=== PATIENT | male | born 1945 | race Caucasian/White ===

== ENCOUNTER → 2018-02-27 | Outpatient (CLI) | payer OTHER, BC ==
[~2018-02-27] VITALS: Ht 180.3 cm; Wt 121.1 kg
[~2018-02-27] MED LIST: ALDACTONE25 MG PO; ATORVASTATIN CA40 MG PO; BACTROBAN22 GM TP; BAYER CHEWABLE81 MG PO; CARVEDILOL12.5 MG PO; CLONIDINE0.1 PO; COZAAR 25 MG TA25 M1 PO; DIOVAN320 MG PO; FUROSEMIDE 20 M20 MG PO; GLUCOPHAGE1000 MG PO; JARDIANCE25 MG PO; LANTUS100 UNIT/M SUBQ; METFORMIN HCL500 MG PO; NEXIUM40 MG PO; NORVASC10 MG PO; PAROXETINE HCL30 MG PO; TOPROL XL25 MG PO; VIBRAMYCIN 100100 M2 PO; VITAMIN D1000 UNI1 PO; XARELTO15 MG PO; XARELTO20 MG PO; ZANTAC 150MG T150 MG PO
--- NOTE | ~2018-02-27 | HPC ---
[facility] [address] [place] [address] PAIN MANAGEMENT CONSULTATION Name: MILTON BHATIA JR Room #: REG [facility].#: [id number] Admission: 02/27/18 Attend Phys: Jv Marlow MD Discharge: Date of : 43 Report #: [id number] THIS REPORT FOR: //name// CC: Guerrero Marlow DATE OF SERVICE: 02/27/2018 CHIEF COMPLAINT: Axial low back pain. I am seeing the patient today at the request of Dr. English. He is a pleasant 72-year-old gentleman who complains of pain across the lumbosacral segment without radiation. Pain is extreme in his low back particularly after he first gets up in the morning. It is a little better as the day goes on. He reports that he cannot stand very long or walk very far without having increasing back pain and he has dyspnea on exertion. He has known spinal stenosis and his MRI was reviewed today. Degenerative disk disease and spondylosis round out his x-ray findings, fairly common findings for a 72-year-old gentleman who is obese and deconditioned. He describes his pain as an aching periodic sensation, every day it is a 5, but it can be 8/10 in the morning. The patient suffers from non-Hodgkin's lymphoma. He has been under treatment and has one more chemotherapy treatment to go. He also has developed a dental abscess, which needs to be taken care of by next Saturday by an oral surgeon. Apparently, this is due to a foreign body left behind during a root canal 12 years ago. MEDICATIONS: Include the blood thinner, Xarelto, atorvastatin, paroxetine, aspirin, Lantus insulin, metformin, ____, ranitidine, spironolactone, losartan and metoprolol. ALLERGIES: RADIOGRAPHIC DYE CAUSED SOME FLUSHING. PAST MEDICAL HISTORY: Remarkable for carcinoma of the prostate resected in 2001 followed by radiation. Surgery was performed by Dr. Jorge Thorne. He reports that his prostate cancer is "gone." Non-Hodgkin's lymphoma, currently under treatment. Osteoarthritis, of multiple joints including hips and knees. History of irritable bowel syndrome with frequent diarrhea. This was suggested as a possible radiation side effect, but that thought had not been crossed their mind nor has it been addressed as a possibility. He has type 2 diabetes and a history of hypertension. 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 He denies use of tobacco, but enjoys two alcoholic beverages per day in a social setting. He does not exercise at all and he has dyspnea with even short exertional activities. Impacted pain scores are mostly with walking, normal work and enjoyment of life. He scores a 29 out of a possible 70. Risk assessment tool is completed and he is at low risk for addiction. He completed a review of systems and each category was questioned with the patient, is noted on the medical record and included mostly in the history of present illness. PHYSICAL EXAMINATION GENERAL: This is a pleasant, outgoing gentleman. He is morbidly obese. VITAL SIGNS: BMI of 37.3. Much of his weight carried around the midsection. He is 5 feet 11 inches tall. He weighs 267 pounds. His blood pressure is 124/69, heart rate 85, respirations 16, room air oxygen saturation 96%. Pain intensity this day is 4-5/10. GENERAL: When I asked to ambulate, he is able to move from sitting to standing position, but he walks with a somewhat back and forth a bit unstable gait. He seems to have a bit of proprioception loss. He was dyspneic with even short distance of walking no more than 10-20 feet. HEENT: Pupils are equal, round and react to light. EOMs are intact. NECK: Supple. CHEST: Clear to auscultation. CARDIAC: Rhythm was regular. I could not appreciate a murmur. ABDOMEN: Obese with a lot of adipose tissue noted around the midsection. MUSCULOSKELETAL: Significant deconditioning throughout all muscle groups in the upper and lower extremities. There is some tenderness across the lumbosacral segment. Pain with forward flexion and extension is mild. Lateral rotation and [id number] tilt did not reproduce pain. Straight leg raising is only possible to about 30 degrees before there is pain that is noted in the back and some into the hips bilaterally perhaps suggesting a mild radicular component. Sensation is intact. Deep tendon reflexes are absent throughout. IMPRESSION: 1. Low back pain with spondylosis, spinal stenosis, mild components of lumbar radiculopathy and facet arthropathy. 2. Non-Hodgkin's lymphoma, currently under treatment. 3. Dental abscess. 4. Use of anticoagulant therapy for history of DVT and pulmonary embolus. 5. Morbid obesity. [facility] [address] [place] [address] PAIN MANAGEMENT CONSULTATION Name: MILTON BHATIA JR Room #: REG SAMREEN Mckeon#: [id number] Admission: 02/27/18 Attend Phys: Jv Marlow MD Discharge: Date of : 43 Report #: [id number] 6. Insulin-dependent diabetes. 7. Hypertension. 8. History of prostate cancer in 2001. 9. Frequent diarrhea, possibly irritable bowel syndrome, consideration of radiation effect. RECOMMENDATIONS: 1. I had a long discussion today about the importance of movement. A simple walking program was the first step. I have stressed strongly that he should begin a daily walking program out of doors just a few minutes to begin with and gradually increasing. From there, we can move into additional exercises, but he is quite sedentary. I am a bit concerned by his dyspnea on exertion and I have attributed this mostly to deconditioning, but he should be cautious for chest pain and other issues due to his high risk with diabetes, obesity and history of DVT. 2. He may be a candidate for an epidural steroid injection as a first step in treatment through an injection therapy, but I would be cautious with it 3. Medication management discussion: I would avoid the use of nonsteroidal anti-inflammatory drugs or use them very cautiously with his use of Xarelto. It may be helpful for his spondylitic component. 4. Plain Tylenol can be utilized safely up to 2000 mg per day. He has tried this before. I have recommended that he continue to use that as possible. 5. Consider the use of tramadol or hydrocodone as a safer alternative. The opioid crisis referenced and discussed today. This would be considered a reasonable choice given other considerations. It may even be helpful for his loose stools rather than a hindrance as it is for most. Total time spent with the patient is roughly 40 minutes. Followup visit is planned in the future for possible epidural injection. By: [id number] Jv Marlow MD /nt
[2018-02-27 13:33] VITALS: BP 124/69
== END ==
LOC: PAIN 06:46
DX: M47.26 Other spondylosis with radiculopathy, lumbar region (principal); C85.90 Non-Hodgkin lymphoma, unspecified, unspecified site; K04.7 Periapical abscess without sinus; E66.01 Morbid (severe) obesity due to excess calories; E11.9 Type 2 diabetes mellitus without complications; I10 Essential (primary) hypertension; R19.7 Diarrhea, unspecified; Z85.46 Personal history of malignant neoplasm of prostate; Z86.718 Personal history of other venous thrombosis and embolism; Z79.01 Long term (current) use of anticoagulants; Z68.37 Body mass index [BMI] 37.0-37.9, adult

== ENCOUNTER 2018-08-27 13:23 | Emergency (ER) | payer OTHER, BC ==
[~2018-08-27] VITALS: Ht 185.4 cm; Wt 104.3 kg
[2018-08-27 14:07] LABS: HEMATOCRIT 37.6 % (42.0-52.0); HEMOGLOBIN 12.4 gm/dL (14.0-18.0); MCH 32.3 pg (26.0-34.0); MCHC 33.1 g/dL (28.0-37.0); MCV 97.5 fL (80.0-100.0); RBC 3.86 mil/uL (4.50-6.00); RDW 15.1 % (10.5-14.5); WBC 7.6 thou/uL (4.0-11.0)
[2018-08-27 14:16] LABS: APTT 27.2 Seconds (24.5-32.8); INR 1.2; PROTIME 11.9 Seconds (9.3-11.4)
[2018-08-27 14:18] LABS: CALCIUM 9.8 mg/dL (8.5-10.1); CREATININE 1.4 mg/dL (0.7-1.3); POTASSIUM 4.3 mmol/L (3.5-5.1)
[2018-08-27 14:22] LABS: ALBUMIN 3.5 g/dL (3.4-5.0); TOTAL BILIRUBIN 0.6 mg/dL (<0.1-1.0); TOTAL PROTEIN 6.8 g/dL (6.4-8.2)
[2018-08-27 14:26] LABS: ABSOLUTE NEUTROPHILS 6.6 thou/uL (1.4-8.2); PLATELET COUNT 130 thou/uL (150-400); PLATELET ESTIMATE NORMAL
[2018-08-27 14:49] LABS: URINE BLOOD 3+ (Negative); URINE CLARITY CLOUDY; URINE GLUCOSE-RANDOM* 3+ (Negative); URINE KETONES NEGATIVE (Negative); URINE PROTEIN (DIPSTICK) 2+ (Negative); URINE UROBILINOGEN 0.2 E.U./dl (0.2-1.0)
[2018-08-27 14:56] LABS: ICTOTEST (BILI CONFIRMATORY) Negative (Negative); URINE BILIRUBIN NEGATIVE (Negative); URINE COLOR BROWNISH; URINE LEUKOCYTES-REFLEX TRACE (Negative); URINE NITRITE-REFLEX POSITIVE (Negative)
[2018-08-27 15:02] LABS: SQUAMOUS None Seen /LPF (0-3); URINE WBC-REFLEX 0-5 Rare /HPF (0-5)
[2018-08-27 15:03] LABS: BACTERIA-REFLEX 1-9 Few /HPF (None Seen); CASTS None Seen /LPF (None Seen); CRYSTALS None Seen /LPF (None Seen); URINE RBC >20 Many /HPF (0-2)
[2018-08-27] MEDS ORDERED: JARDIANCE25 MG PO (17:08)
[2018-08-27] MEDS ORDERED: RITUXAN100 MG/10 IV (17:11)
[2018-08-27] MEDS ORDERED: KEFLEX500 M1 PO (17:59)
== END 2018-08-27 18:25 | disposition home or self-care (01) ==
LOC: ER 13:23
PROVIDERS: Emergency Medicine; Physician Assistant
DX: S09.90XA Unspecified injury of head, initial encounter (principal); N39.0 Urinary tract infection, site not specified; R31.9 Hematuria, unspecified; K62.5 Hemorrhage of anus and rectum; Z79.01 Long term (current) use of anticoagulants; M48.00 Spinal stenosis, site unspecified; I10 Essential (primary) hypertension; E11.40 Type 2 diabetes mellitus with diabetic neuropathy, unspecified; G62.9 Polyneuropathy, unspecified; Z91.041 Radiographic dye allergy status; Z90.79 Acquired absence of other genital organ(s); W18.39XA Other fall on same level, initial encounter; Y92.009 Unspecified place in unspecified non-institutional (private) residence as the place of occurrence of the external cause; Y93.89 Activity, other specified; Y99.8 Other external cause status

== ENCOUNTER 2019-03-07 11:54 | Inpatient (IN) | payer OTHER, BC ==
[~2019-03-07] VITALS: Ht 180.3 cm; Wt 121.3 kg
--- NOTE | ~2019-03-07 | HC ---
[facility] [address] [place] [address] CONSULTATION Name: MILTON BHATIA JR Room #: 427-P [facility] IN ..#: [id number] Admission: 03/07/19 ������������������ Attend Phys: Valdemar Morales MD Discharge: ������������������ Date of : 43 Report #: [id number] THIS REPORT FOR: //name// CC: Guerrero English MD [facility] physician/PCP Kelle Morales MD DATE OF SERVICE: 03/07/2019 CHIEF COMPLAINT AND HISTORY OF PRESENT ILLNESS: This is a 73-year-old male who is well known to me who was admitted for worsening foot infection with cellulitis and blisters that developed approximately 48 hours ago. He had lacerations of the fourth and fifth toes approximately 1 week ago and presented to my office on Saturday of last week and we cleansed the lacerations, repaired with single interrupted sutures and started him on Keflex. On Saturday, he states the wound was worsening and did call me and I recommended he go to the Emergency Room, which he ultimately did on Saturday and was admitted from there. PAST MEDICAL HISTORY: Significant for non-Hodgkin's lymphoma, lacerations of toes previously, which have required repair due to severe peripheral neuropathy, diabetes with neuropathy. Diabetes is well controlled, hypertension, GERD, history of pulmonary embolism. PAST SURGICAL HISTORY: Significant for prostatectomy in 2001. SOCIAL HISTORY: The patient is and lives at home. Denies tobacco abuse. Drinks several drinks daily. He is retired. REVIEW OF SYSTEMS: The patient feels well. Denies nausea, vomiting, fevers and chills. Noticed increasing redness in the right foot. Other than that, he feels quite good. Review of systems is negative otherwise. ALLERGIES: IODINE, WHICH CAUSES A RASH. MEDICATIONS: In the chart. Please see chart for full list of medications. He is currently on Zosyn and vancomycin IV. PHYSICAL EXAMINATION: VITAL SIGNS: Stable. He is currently afebrile. GENERAL: Well-developed, well-nourished male who is pleasant, cooperative, answers questions appropriately. GAIT: Unable to assess. The patient is resting on the hospital bed. LOWER EXTREMITY PHYSICAL EXAM: VASCULAR: Pedal pulses are difficult to palpate due to edema, [place] [address] CONSULTATION Name: JANNETTEMILTON PUCKETT Room #: 427-P [facility] IN ..#: [id number] Admission: 03/07/19 ������������������ Attend Phys: Valdemar Morlaes MD Discharge: ������������������ Date of : 43 Report #: [id number] NEUROLOGIC: The patient cannot appreciate light touch on both feet. He has severe peripheral neuropathy. Diminished protective sensation on both feet. DERM: He has large bullae measuring approximately 4 cm dorsum of the right foot x 2, lateral aspect of the right foot x 1 with a dark purple area laterally on the fifth met head, which is approximately 4 cm in length. There is some fluctuance in these areas. Lacerations of the fourth and fifth toes on the right foot are partially coapted with sutures. There is some areas of dehiscence. LABORATORY DATA: Labs were reviewed, revealing a normal white blood cell count with a left shift. Creatinine is 1.2. White blood cells normal at 7.9, segs are 86.7%. X-rays of the right foot were taken upon admission and were negative. ASSESSMENT AND PLAN: 1. Right foot infection and cellulitis, laceration of the right foot with multiple bullae, right foot. 2. Verbal consent was obtained to perform a limited incision and drainage of these three bullae on the right foot. I applied iodine, performed a simple I and D at bedside of these 3 areas with approximately 20 mL of serosanguineous fluid that was drained. I cleansed very thoroughly with normal sterile saline, applied dry sterile dressings. Start b.i.d. dressing changes with wound cleansing. Wound cultures today. Agree with Zosyn and vancomycin. We will continue this and adjust based on cultures. 3. Hypertension. 4. Hyperlipidemia. 5. Diabetes mellitus type 2. 6. Non-Hodgkin's lymphoma. 7. History of present pulmonary embolism, he is currently on Xarelto. Thank you for your consultation. We will continue to follow. ��������������������������������������������� ���������������������������������������� By: ��������������������������������������������� [id number] Partha Liang, MARILYN /nt
--- NOTE | ~2019-03-07 | H ---
[facility] [place] [address] [place] [address] HISTORY AND PHYSICAL Name: MILTON BHATIA Room #: 427-P ADM IN M.R.#: [id number] Admission: 03/07/19 ������������������ Attend Phys: Valdemar Morales MD Discharge: ������������������ Date of : 43 Report #: [id number] THIS REPORT FOR: //name// CC: Guerrero English MD [facility] physician/PCP Kelle Morales DATE OF SERVICE: 03/09/2019 SUBJECTIVE: A 73-year-old male with right foot infection. He denies nausea, vomiting, fevers and chills. Overall, he feels good. He denies pain, but has neuropathy. He is currently on vancomycin and Zosyn. MRI was taken today, which was negative. OBJECTIVE: VITAL SIGNS: Stable. He is afebrile. White blood cell count is 6.6, segs are 86.7%, bands are 19%. Wound cultures revealed gram-positive cocci and as above MRI was negative for osteomyelitis or abscess. GENERAL: Well-developed, well-nourished male sitting in the chair, resting comfortably with his foot elevated. EXTREMITIES: Dressings are intact with scant strike through on the bandages. Bandages were removed. Cellulitis were somewhat improved with less intense erythema, draining blisters on the dorsum of the foot lateral aspect of the right foot. Overall, doing well with no reoccurrence. Edema is improved also to the right foot. Dark area on the lateral aspect of the right foot is also improved, measures approximately 3 cm in length. Lacerations of the fifth toe was coapted and healing well, the fourth toe was no longer coapted due to the recent infection and swelling. Sutures were carefully removed today. This area will have to heal in secondarily due to the recent infection. I do not feel it is a good idea to resuture these. ASSESSMENT AND PLAN: 1. Right foot infection with cellulitis and laceration of the fourth and fifth toes, right foot; recently drained bullae x 3, right foot. Wound cultures are pending, but so far Gram-positive cocci in clusters and chains. MRI was negative for osteomyelitis or an abscess. Recommend continued local wound care with dressing changes b.i.d. and flushing with normal sterile saline to all areas dry and carefully, applying dry sterile dressings. Continue with vancomycin and Zosyn. White blood cell count is normal. He does have increased segs and bands. I do feel that the appearance of the foot is improved. Anticipate home tomorrow on oral antibiotics. We may consider clindamycin and Cipro based on the severity of the infection, hopefully the sensitivities will be back by tomorrow. [address] [address] HISTORY AND PHYSICAL Name: MILTON BHATIA JR Room #: 427-P [facility] IN M.R.#: [id number] Admission: 03/07/19 ������������������ Attend Phys: Valdemar Morales MD Discharge: ������������������ Date of : 43 Report #: [id number] 2. Hypertension, hyperlipidemia, diabetes mellitus type 2 with severe neuropathy, non-Hodgkin's lymphoma, history of pulmonary embolism, not currently anticoagulated. Thank you for allowing me to participate in this patient's care. ��������������������������������������������� ���������������������������������������� By: ��������������������������������������������� [id number] Partha Liang, MARILYN /nt
--- NOTE | ~2019-03-07 | HC ---
[facility] [address] [place] [address] CONSULTATION Name: MILTON BHATIA JR Room #: 427-P [facility] IN ..#: [id number] Admission: 03/07/19 ������������������ Attend Phys: Valdemar Morales MD Discharge: ������������������ Date of : 43 Report #: [id number] THIS REPORT FOR: //name// CC: [facility] physician/PCP Valdemar Morales DATE OF SERVICE: 03/08/2019 SUBJECTIVE: A 73-year-old male who was admitted for right foot infection. Denies nausea, vomiting, fevers or chills. Denies pain, but has severe neuropathy. He has a good appetite and otherwise feels good. OBJECTIVE: VITAL SIGNS: Temperature is 98.3, T-max of 99, respirations are 18, pulse is 70, blood pressure is 156/72, O2 sats are 96% on room air. EXTREMITIES: Lower extremity physical exam, cellulitis remains to the right foot and goes down to the ankle level. The blisters on the dorsum of the foot have been drained yesterday and they remained flat and have not recurred. Lateral foot has a blister, which reoccurred, fairly large. Some fluctuance in this area. Dark area remains lateral fifth metatarsal head. Moderate edema to the foot. Lacerations into the fourth and fifth toes remain unchanged. No significant drainage from them. LABORATORY DATA: White blood cell count 6.6, hemoglobin 11.3, hematocrit 34.5, platelets 140,000. Segs are 86%, bands are 19%. ASSESSMENT AND PLAN: Diabetic foot infection with multiple blisters and the laceration, right foot, not significantly improved today. We do have a blister that needs drained. I applied iodine. Verbal consent was obtained to perform a simple I and D lateral right foot. I performed a limited I and D on the right foot, sterile scalpel. After applying iodine, approximately 5 mL of serosanguineous fluid was drained. I cleansed all the wounds with normal sterile saline, applied dry sterile dressings. I gave instructions to start local wound care twice a day with flushing cleansing of all areas. Continue with vancomycin and Zosyn. May consider an MRI if the cellulitis is not improving to rule out a deeper abscess. Keep the foot elevated as much as possible. Continue with vancomycin and Zosyn. Awaiting wound cultures to determine appropriate course of antibiotics. Anticipate 3-5 days in the hospital, but we will defer to Dr. Morales on his opinion on this matter. We will continue to follow. ��������������������������������������������� ���������������������������������������� By: ��������������������������������������������� [id number] Partha Liang DPM /tiffanie
[~2019-03-07 11:54] MED LIST changes: +KEFLEX500 M1 PO; +RITUXAN100 MG/10 IV
[2019-03-07 12:00] VITALS: BP 139/77
[2019-03-07] MEDS ORDERED: BENICAR20 MG PO (12:05)
[2019-03-07 12:52] LABS: ABSOLUTE NEUTROPHILS 6.8 thou/uL (1.4-8.2); BASOPHILS 0.3 % (0.0-2.0); HEMATOCRIT 37.5 % (42.0-52.0); HEMOGLOBIN 12.2 gm/dL (14.0-18.0); LYMPHOCYTES 3.1 % (24.0-44.0); MCH 28.9 pg (26.0-34.0); MCHC 32.4 g/dL (28.0-37.0); MONOCYTES 8.9 % (1.0-8.0); PLATELET COUNT 147 thou/uL (150-400); POLYS 86.7 % (36.0-66.0); RBC 4.21 mil/uL (4.50-6.00); RDW 15.5 % (10.5-14.5); WBC 7.9 thou/uL (4.0-11.0)
[2019-03-07 13:00] LABS: CALCIUM 9.2 mg/dL (8.5-10.1); CREATININE 1.2 mg/dL (0.7-1.3); POTASSIUM 4.5 mmol/L (3.5-5.1)
[2019-03-07 15:42] VITALS: BP 139/77
[2019-03-07 15:50] VITALS: BP 122/97
[2019-03-07 19:00] VITALS: BP 156/72
--- NOTE | 2019-03-07 19:29 | NUR ---
PT ARRIVED TO UNIT FROM ED IN STABLE CONDITION AT 16:30. AT BEDSIDE. ADMISSION ASSESSMENT COMPLETED. C/O RIGHT FOOT BLISTERS/WOUND, DENIES PAIN. IV ABX GIVEN ORDERED. RIGHT FOOT EDEMA NOTED, ELEVATED ON PILLOWS. HIGH FALL RISK, PRECAUTIONS IN PLACE. A&O,X4. UP WITH STANDBY ASSIST AND WALKER. PT IN STABLE CONDTION.
[2019-03-08 03:55] VITALS: BP 140/69
--- NOTE | 2019-03-08 04:39 | NUR ---
PT AMBULATING IN ROOM INDEPENDENTLY AND IS TOLERATING WELL. DENIES NEED FOR PAIN MEDICATION. RESTING COMFORTABLY. NO NEEDS VOICED. CALL LIGHT WITHIN REACH. WILL CONTINUE TO PROVIDE FREQUENT OBSERVATION.
[2019-03-08 05:05] LABS: HEMATOCRIT 34.5 % (42.0-52.0); HEMOGLOBIN 11.3 gm/dL (14.0-18.0); MCHC 32.8 g/dL (28.0-37.0); MCV 88.3 fL (80.0-100.0); RBC 3.91 mil/uL (4.50-6.00); RDW 15.2 % (10.5-14.5); WBC 6.6 thou/uL (4.0-11.0)
[2019-03-08 05:14] LABS: CREATININE 1.2 mg/dL (0.7-1.3)
[2019-03-08 05:18] LABS: POTASSIUM 3.5 mmol/L (3.5-5.1)
[2019-03-08 07:17] VITALS: BP 145/83
--- NOTE | 2019-03-08 14:56 | NUR ---
ASSUMED CARE OF PT AT 0700. ASSESSMENT COMPLETED. A&O,X4. DENIES RIGHT FOOT PAIN. DR. SHARMA AT BEDSIDE AND COMPLETED BLISTER JANEL WITH DRESSING CHANGE. NEW ORDERS FOR BID DRESSING CHANGE AND FOOT MRI TOMORROW. AND FAMILY AT BESIDE. RESTARTED HOME MEDS PER DR. LOU. DM, ACHS, LANTUS INSULIN GIVEN ORDERED, PT REFUSED SLIDING SCALE. FALL PRECAUTIONS IN PLACE. WILL CONTINUE TO MONITOR UNTIL EOS.
[2019-03-08 15:42] VITALS: BP 151/76
[2019-03-08 20:02] VITALS: BP 148/69
--- NOTE | 2019-03-09 05:13 | NUR ---
PT AMBULATING TO BATHROOM INDEPENDENTLY AND IS TOLERATING WELL. DENIES PAIN. RIGHT FOOT BLISTERS CLEANED AND REDRESSED. MRI SCHEDULED FOR 03/09. RESTING COMFORTABLY. NO NEEDS VOICED. CALL LIGHT WITHIN REACH. WILL CONTINUE TO PROVIDE FREQUENT OBSERVATION.
[2019-03-09 05:32] VITALS: BP 168/86
[2019-03-09 08:27] VITALS: BP 151/87
--- NOTE | 2019-03-09 11:54 | NUR ---
PT A&OX4, IV INTACT IN L AC RECIEVING IV ABX, AMBULATES SELF IN ROOM, DRSG TO R FT C/D/I. DENIES ANY PAIN. PT COMPLETED MRI OF FT, AWAITING FOR RESULTS PENDING DC TODAY.
--- NOTE | 2019-03-09 13:40 | NUR ---
Assess due to notification of right foot blister, wound. Hx diabetes. States BG in very good control, A1C is 6. Good appetite, no questions regarding diet. Eating high protein foods. Low nutrition risk
--- NOTE | 2019-03-09 15:55 | NUR ---
ASSESSMENT-PT LIVES AT [facility] WITH HIS . PT WALKS ON HIS OWN AT HOME BUT USES A CANE FOR BALANCE WHEN OUT DUE TO NEUROPATHY. PT DOES HIS OWN ADLS. PT DRIVES. IN GOOD HEALTH AND ABLE TO ASSIST PT AT HOME. BUSTOS STHE COOKING, CLEANING, AND LAUNDRY. SHE DRIVES WELL. SHE HAS BEEN DOING DRESSING CHANGES TO PT'S FOOT. PT/ VOICE NO DC NEEDS AT THIS TIME. FOLLOWING TO ASSIST WITH DC PLANNING.
[2019-03-09 17:04] VITALS: BP 136/62
[2019-03-09 19:20] VITALS: BP 153/74
[2019-03-10 04:20] VITALS: BP 168/82
--- NOTE | 2019-03-10 05:34 | NUR ---
Assumed care of pt at 1900. Pt alert and oriented x4. Dressing on right foot clean and intact. IV antibiotics administered. Call light within reach. Will continue to monitor.
[2019-03-10 07:01] VITALS: BP 172/81
[2019-03-10 08:02] LABS: FOLIC ACID 54.9 ng/mL (8.6-58.9)
[2019-03-10] MEDS ORDERED: CLEOCIN HCL150 MG PO (14:24)
[2019-03-10] MEDS ORDERED: CIPRO500 MG PO (14:24)
[2019-03-10] MEDS ORDERED: NOVOLOG100 UNIT/1 SUBQ (14:24)
[2019-03-10] MEDS ORDERED: B-12500 MCG PO (14:24)
[2019-03-10 14:38] VITALS: BP 172/81
--- NOTE | 2019-03-10 15:52 | NUR ---
PT ASSESSED AT START OF SHIFT. DR. SHARMA CALLED W/ DISCHARGE INSTRUCTIONS AND IS CALLING IN PT PRESCRIPTIONS TO HIS PHARMACY. PICTURES TAKEN OF FOOT AND REDRESSED INSTRUCTING FOR DRESSING CHANGES. PT DOING WELL AND GOING HOME THIS AFTERNOON. B12 SHOT IM GIVEN.
== END 2019-03-10 17:24 | disposition home or self-care (01) | DRG 603 ==
LOC: ER 11:54 → 4E 13:40 → EROBS 13:40 → 4E 15:51 → ENTRNSPT 03-10 17:12 → 4E 03-10 17:24
PROVIDERS: Student in an Organized Health Care Education/Training Program; ADMIT Hospitalist
PROC: 0H9MXZZ Drainage of Right Foot Skin, External Approach (ICD-10-PCS; principal; 2019-03-08)
DX: L03.115 Cellulitis of right lower limb (principal); C85.90 Non-Hodgkin lymphoma, unspecified, unspecified site; I10 Essential (primary) hypertension; E53.8 Deficiency of other specified B group vitamins; X58.XXXA Exposure to other specified factors, initial encounter; S91.119A Laceration without foreign body of unspecified toe without damage to nail, initial encounter; E78.5 Hyperlipidemia, unspecified; E11.42 Type 2 diabetes mellitus with diabetic polyneuropathy; Z79.84 Long term (current) use of oral hypoglycemic drugs; M62.571 Muscle wasting and atrophy, not elsewhere classified, right ankle and foot; Z91.041 Radiographic dye allergy status; Z79.82 Long term (current) use of aspirin; Z79.899 Other long term (current) drug therapy; Z86.711 Personal history of pulmonary embolism; Y92.89 Other specified places as the place of occurrence of the external cause; Y93.89 Activity, other specified; Y99.8 Other external cause status; Z79.4 Long term (current) use of insulin
CPT/HCPCS: 10084; 10183

== ENCOUNTER → 2019-07-27 | Outpatient (CLI) | payer OTHER, BC ==
[~2019-07-27] VITALS: Ht 180.3 cm; Wt 119.2 kg
[~2019-07-27] MED LIST changes: +B-12500 MCG PO; +BENICAR20 MG PO; +CIPRO500 MG PO; +CLEOCIN HCL150 MG PO; +DIOVAN160 MG PO; +NOVOLOG100 UNIT/1 SUBQ; +OMEPRAZOLE40 MG PO
[2019-07-27 13:50] VITALS: BP 155/84
--- NOTE | 2019-07-27 14:00 | NUR ---
Pain Clinic Assessment: 1. History of Osteoarthritis: Not Applicable History of Rheumatoid Arthritis: Not Applicable 2. Height: 5 ft. 11 in. 180.3 cm. Weight: 262.8 lb. oz. 119.206 kg. Patient's BMI: 36.7 3. Vital Signs: BP: 155/84 Pulse: 82 Resp: 22 Temp: 02 Sat: 97 ECG Mon: 4. Pain Intensity: 8 5. Fall Risk: Dizziness: Y Needs help standing or walking: Y Fallen in the last 3 months: N Fall risk comments: 6. Patient on Blood Thinner: XARELTO 7. History of Hypertension: Y 8. Opioid Therapy greater than 6 weeks: N Opiate Contract Signed: 9. Risk Assessment Tool Provided: LOW RISK 0 10. Functional Assessment Tool: 11. Recreational Drug Use: Never Drug Type: Tobacco Use: Never Smoker Tobacco Type: Amount or Packs/day: How Many Years: Alcohol Use: Yes Frequency: Daily Quant: 1-2
--- NOTE | 2019-07-30 08:38 | HPC ---
[facility] [address] [address] PAIN MANAGEMENT CONSULTATION Name: MILTON BHATIA JR Room #: REG [facility].#: [id number] Admission: 07/27/19 ������������������ Attend Phys: Jv Marlow MD Discharge: ������������������ Date of : 41 Report #: [id number] THIS REPORT FOR: //name// CC: Guerrero English MD [facility] physician/PCP Jv Marlow DATE OF SERVICE: 07/27/2019 CHIEF COMPLAINT: Bilateral low back pain, debility, weakness and radiating pain into the left buttock. The patient is a pleasant 74-year-old gentleman who I last saw 18 months ago. He is here today for repeat consultation. He scores a daily pain at 8/10. It is in his low back, left buttock and his legs feel weak, almost like jello after he walks for short distances. He has been using a cane for balance. He does not move a lot because of pain, and we talked about the cycle of debility that occurs as he becomes more and more sedentary. He has gained a fair amount of weight over the course of the last 5 years and is obese as well, limiting his mobility. His cardiovascular fitness is also diminished. He easily becomes short of breath. MEDICATIONS: Valsartan, omeprazole, metoprolol, spironolactone, Xarelto which he took today, Jardiance, insulin, aspirin, paroxetine, atorvastatin. ALLERGIES: None listed. PAST MEDICAL HISTORY: Remarkable for non-Hodgkin's lymphoma diagnosed in 2014, treated with radiation; prostate surgery in 2001; type 2 diabetes mellitus, on Lantus and metformin; spinal stenosis, diabetic peripheral neuropathy and hypertension. SOCIAL HISTORY: Denies use of tobacco. He does drink alcohol daily 1 or 2 beverages in a social setting with his . He is retired. He lives independently, but again is becoming much more sedentary. REVIEW OF SYSTEMS: Positive for dyspnea on exertion with short distances, frequent diarrhea, rectal bleeding has been noted in the past. He has nocturia, lightheadedness, dizziness and fatigue, weakness and diffuse lower body osteoarthritis. He has neuropathy from his insulin-dependent diabetes. PHYSICAL EXAMINATION: GENERAL: Pleasant gentleman, 5 feet 11 inches, 162 pounds with a BMI of 36.7. VITAL SIGNS: Blood pressure 155/84, heart rate 82, respirations 22. HEENT: Normal. Pupils are equal, round, reactive to light. EOMs are intact. [facility] [address] [place] [address] PAIN MANAGEMENT CONSULTATION Name: MILTON BHATIA Room #: REG CLI [facility]#: [id number] Admission: 07/27/19 ������������������ Attend Phys: Jv Marlow MD Discharge: ������������������ Date of : 41 Report #: [id number] He wears glasses. Mucous membranes are moist. NECK: Supple. CHEST: Clear to auscultation with no audible wheezing. CARDIAC: Regular rhythm with no murmur appreciated. ABDOMEN: Soft. MUSCULOSKELETAL: His gait is slow, antalgic and he is unsteady on his feet. I had him walk 25 feet, turn and return. When he turned, he had to use his hand to balance against the wall and took a few seconds before he could ambulate again. By the time we returned back to the room, he was short of breath. There was tenderness across the lower lumbar segment, tenderness into the left hip. Straight leg raising is performed without significant radiculopathy on the right, but mild on the left, reproducing pain into the left buttock. There is normal sensation of the lower extremities. Bilateral lower extremity weakness is noted in a generalized fashion. There is no focal weakness per se. IMAGING: X-rays from 2018 are positive for age-related advanced multilevel degenerative changes. There is mild bilateral neural foraminal narrowing noted at L4-L5, but the central stenosis is only mild throughout. There are no focal disk extrusions. IMPRESSION: 1. Chronic low back pain with mild left lumbar radiculopathy into the left buttock. This is multi-dermatomal. 2. Significant debility and deconditioning. He is very rapidly short of breath. 3. History of prostatectomy. 4. History of non-Hodgkin's lymphoma. 5. History of type 2 diabetes, on insulin. 6. Peripheral neuropathy. 7. Hypertension. I have recommended epidural injection, but he will need to go off his Xarelto. Three days off Xarelto and he should be able to return for an epidural injection. We discussed the pain relief that will result from the epidural I believe, and using that pain relief I would like to begin a very slow but gradual program of exercise. He would start with a walking program, even 5 minutes a day, but do it on a regular basis and then we will move him to a physical therapy referral. I have suggested either the clinic at [facility] or Tony Mike at [facility] and [facility]. [facility] [address] [place] [address] PAIN MANAGEMENT CONSULTATION Name: MILTON BHATIA JR Room #: REG [facility]#: [id number] Admission: 07/27/19 ������������������ Attend Phys: Jv Marlow MD Discharge: ������������������ Date of : 41 Report #: [id number] Followup visit is planned in 3 days for epidural injection off of anticoagulation therapy. ��������������������������������������������� <ELECTRONICALLY SIGNED> ���������������������������������������� By: Jv Marlow MD ��������������������������������������������� 07/30/19 [id number] [id number] Jv Marlow MD /nt
== END ==
LOC: PAIN 06:59
DX: M54.16 Radiculopathy, lumbar region (principal); C85.80 Other specified types of non-Hodgkin lymphoma, unspecified site; E11.9 Type 2 diabetes mellitus without complications; E11.42 Type 2 diabetes mellitus with diabetic polyneuropathy; I10 Essential (primary) hypertension; Z79.4 Long term (current) use of insulin

== ENCOUNTER → 2019-08-03 | Outpatient (CLI) | payer OTHER, BC ==
[~2019-08-03] VITALS: Ht 180.3 cm; Wt 118.6 kg
--- NOTE | ~2019-08-03 | HPC ---
[address] [place] [address] PAIN MANAGEMENT CONSULTATION Name: MILTON BHATIA JR [id number] Admission: 08/03/19 ������������������ Attend Phys: Jv Marlow MD Discharge: ������������������ Date of : 41 Report #: [id number] THIS REPORT FOR: //name// CC: [facility] physician/PCP Jv Marlow DATE OF SERVICE: 08/03/2019 Followup visit for lumbar epidural injection. I saw the patient just one week ago. He is here today for his epidural injection. We reviewed his symptoms. There have been no changes. We reviewed his x-rays showing multiple level degenerative changes with bilateral neural foraminal narrowing at L4-L5 and lumbar radiculopathy. His pain continues to radiate into the left buttock and left leg in a multi dermatomal distribution. He is off his Xarelto for 3 days. I reviewed the procedure, risks and benefits and he is anxious to proceed. IMPRESSION: Low back pain, debility, weakness with radiating pain in the left buttock with radicular component. PROCEDURE: Lumbar epidural injection under fluoroscopic guidance. DESCRIPTION OF PROCEDURE: He was taken to fluoroscopic suite, placed prone, skin prepped with ChloraPrep. Skin was anesthetized over the L4-L5 interspace. A 20-gauge Tuohy epidural needle advanced first attempt to the epidural space with loss of resistance technique. There was no blood or CSF aspirated. A 1 mL of Omnipaque injected. Good spread of dye observed in the epidural space. It was then followed by 3 mL of 0.5% lidocaine mixed with 80 mg triamcinolone. He tolerated the procedure well and was observed for 45 minutes and discharged. Followup visit planned on an as needed basis. ��������������������������������������������� ���������������������������������������� By: ��������������������������������������������� [id number] Jv Marlow MD /nt
[2019-08-03 13:08] VITALS: BP 148/87
--- NOTE | 2019-08-03 13:22 | NUR ---
Pain Clinic Assessment: 1. History of Osteoarthritis: BACK SHOULDERS History of Rheumatoid Arthritis: Not Applicable 2. Height: 5 ft. 11 in. 180.3 cm. Weight: 261.4 lb. oz. 118.571 kg. Patient's BMI: 36.5 3. Vital Signs: BP: 148/87 Pulse: 77 Resp: 16 Temp: 02 Sat: 97 ECG Mon: 4. Pain Intensity: 8-9 5. Fall Risk: Dizziness: N Needs help standing or walking: Y Fallen in the last 3 months: N Fall risk comments: 6. Patient on Blood Thinner: XARELTO 7. History of Hypertension: Y 8. Opioid Therapy greater than 6 weeks: N Opiate Contract Signed: 9. Risk Assessment Tool Provided: LOW RISK 0/3 10. Functional Assessment Tool: 11. Recreational Drug Use: Never Drug Type: Tobacco Use: Never Smoker Tobacco Type: Amount or Packs/day: How Many Years: Alcohol Use: Yes Frequency: Daily Quant: 1-2
== END | disposition home or self-care (01) ==
LOC: PAIN 06:55
DX: M54.5 Low back pain (principal); M54.16 Radiculopathy, lumbar region; M99.73 Connective tissue and disc stenosis of intervertebral foramina of lumbar region; E11.9 Type 2 diabetes mellitus without complications; Z88.8 Allergy status to other drugs, medicaments and biological substances; Z79.82 Long term (current) use of aspirin; Z79.899 Other long term (current) drug therapy; Z79.01 Long term (current) use of anticoagulants

== ENCOUNTER → 2020-01-18 | Outpatient (CLI) | payer OTHER, BC ==
[~2020-01-18] VITALS: Ht 180.3 cm; Wt 116.2 kg
[~2020-01-18] MED LIST changes: -DIOVAN160 MG PO
--- NOTE | ~2020-01-18 | HPC ---
[facility] [place] [address] PAIN MANAGEMENT CONSULTATION Name: MILTON BHATIA JR Room #: REG [facility].#: [id number] Admission: 01/18/20 Attend Phys: Jv Marlow MD Discharge: Date of : 41 Report #: [id number] THIS REPORT FOR: cc: RAFAEL - No family physician/PCP RAFAEL - No family physician/PCP Jv Marlow MD ~ CC: Guerrero English MD [facility] physician/PCP Jv Marlow DATE OF SERVICE: 01/18/2020 CHIEF COMPLAINT: Chronic low back pain with radiculopathy. I saw the patient back in July and he received a lumbar epidural injection. We have found that dexamethasone which was used for that injection is ineffective in our experience. I would like to repeat the injection today with triamcinolone. I reviewed his MRI scan and he has bilateral foraminal narrowing at L4-L5 consistent with his symptoms. There is a thickened ligamentum flavum and a circumferential disk bulge with bilateral facet arthrosis. This is the most likely location for the symptoms of radiculopathy noted into both legs. Pain is worse with standing or walking. He has become quite limited. PQRS REVIEW: Positive for osteoarthritis, lumbar spondylosis back and shoulders. BMI 35.7, blood pressure 159/90, heart rate 80, respirations 16, O2 sat 96. Pain intensity is 10 with walking 0 with sitting, has not fallen. He is on Xarelto, but discontinued it for 3 days on 01/14/2020 in anticipation of injection. He denies hypertension. No opioids utilized, opioid risk tool score is 0. Functional assessment score 29/70 showing good ____ amenability to manage his pain. Does not smoke. Drinks alcohol in a social setting. IMPRESSION: 1. Chronic low back pain with radiculopathy. 2. Obesity. RECOMMENDATION: Lumbar epidural injection L4-L5 under fluoroscopic guidance. DESCRIPTION OF PROCEDURE: The patient was taken to fluoroscopic suite for treatment, placed prone, skin prepped with ChloraPrep. Skin anesthetized over the L4-L5 interspace. A 20-gauge Tuohy epidural needle advanced in the epidural space with loss of resistance technique. There was no blood or CSF aspirated. A 1 mL of Omnipaque injected. Good spread of dye observed in the epidural space followed by 3 mL of 0.5% lidocaine mixed with 80 mg of triamcinolone. He tolerated the procedure well and was observed for 45 minutes and discharged. [address] [address] PAIN MANAGEMENT CONSULTATION Name: JANNETTEMILTON PUCKETT Room #: REG CLI Mike#: [id number] Admission: 01/18/20 Attend Phys: Jv Marlow MD Discharge: Date of : 41 Report #: [id number] Followup visit as needed. By: [id number] Jv Marlow MD /nt
[2020-01-18 14:36] VITALS: BP 159/90
--- NOTE | 2020-01-18 14:45 | NUR ---
Pain Clinic Assessment: 1. History of Osteoarthritis: BACK SHOULDERS History of Rheumatoid Arthritis: DENIES 2. Height: 5 ft. 11 in. 180.3 cm. Weight: 256.2 lb. oz. 116.212 kg. Patient's BMI: 35.7 3. Vital Signs: BP: 159/90 Pulse: 80 Resp: 16 Temp: 02 Sat: 96 ECG Mon: 4. Pain Intensity: 10 WALKING 0 SITTING 5. Fall Risk: Dizziness: N Needs help standing or walking: Y Fallen in the last 3 months: N Fall risk comments: 6. Patient on Blood Thinner: XARELTO 7. History of Hypertension: Y 8. Opioid Therapy greater than 6 weeks: N Opiate Contract Signed: 9. Risk Assessment Tool Provided: LOW RISK 0/3 10. Functional Assessment Tool: 11. Recreational Drug Use: Never Drug Type: Tobacco Use: Never Smoker Tobacco Type: Amount or Packs/day: How Many Years: Alcohol Use: Yes Frequency: Daily Quant:
== END | disposition home or self-care (01) ==
LOC: PAIN 06:47
DX: M54.16 Radiculopathy, lumbar region (principal); G89.29 Other chronic pain; E11.9 Type 2 diabetes mellitus without complications; M19.90 Unspecified osteoarthritis, unspecified site; E66.09 Other obesity due to excess calories; Z98.890 Other specified postprocedural states; Z79.01 Long term (current) use of anticoagulants; Z91.041 Radiographic dye allergy status; Z79.899 Other long term (current) drug therapy; Z68.35 Body mass index [BMI] 35.0-35.9, adult